=== PATIENT | male | born 1965 | race African-American/Black ===

== ENCOUNTER 2017-12-03 07:43 | Emergency (ER) | payer MEDICAID ==
[~2017-12-03] VITALS: Ht 182.9 cm; Wt 108.9 kg
--- NOTE | 2017-12-03 07:50 | NUR ---
IV ACCESS STARTED. BLOOD DRAWN FOR LABS.
[2017-12-03 08:13] LABS: BASOPHILS % (AUTO) 0.1 % (0.0-2.0); EOSINOPHILS % (AUTO) 1.3 % (0.0-6.0); HEMATOCRIT 44 % (39-51); HEMOGLOBIN 14.9 g/dL (13.5-17.5); LYMPHOCYTES # (AUTO) 2.1 /CMM (0.8-4.8); LYMPHOCYTES % (AUTO) 15.4 % (20.0-44.0); MEAN CORPUSCULAR HGB CONC 34 g/dl (31.0-36.0); MEAN CORPUSCULAR VOLUME 96 fL (80-96); MONOCYTES # (AUTO) 0.5 /CMM (0.1-1.30); MONOCYTES % (AUTO) 3.9 % (2.0-12.0); NEUTROPHILS # (AUTO) 10.7 /CMM (1.8-8.9); NEUTROPHILS % (AUTO) 79.3 % (43.0-81.0); PLATELET COUNT (AUTO) 250 /CMM (150-450); RDW COEFFICIENT OF VARIATION 12.6 (11.5-15.0); RED BLOOD CELL COUNT(AUTO) 4.61 MIL/uL (4.5-6.0); WHITE BLOOD COUNT (AUTO) 13.5 K/uL (4.3-11.0)
--- NOTE | 2017-12-03 08:21 | NUR ---
[facility] AT BS.
[2017-12-03 08:26] LABS: CALCIUM, SERUM 9.4 mg/dL (8.5-10.1); CREATININE 1.2 mg/dL (0.6-1.3); POTASSIUM 4.7 mmol/L (3.5-5.1)
[2017-12-03] MEDS ORDERED: FUROSEMIDE 40 MG/4 ML VIAL IV ONE (08:30)
[2017-12-03] MEDS ORDERED: NITROGLYCERIN PACKET 1 GM PACKET TD ONE (08:30)
[2017-12-03] MEDS ORDERED: NITROGLYCERIN PACKET 1 GM PACKET ONE (08:31)
[2017-12-03] MEDS ORDERED: FUROSEMIDE 20 MG/2 ML VIAL ONE (08:31)
[2017-12-03 08:32] LABS: TROPONIN I 0.066 ng/mL (0.00-0.056)
[2017-12-03] MEDS ORDERED: ASPI-1169 PO (08:33)
[2017-12-03] MEDS ORDERED: AMLO5TAB7 PO (08:33)
[2017-12-03 08:40] LABS: BILIRUBIN,DIRECT 0.1 mg/dL (0.0-0.2); BILIRUBIN,TOTAL 0.6 mg/dL (0.2-1.0)
[2017-12-03] MEDS ORDERED: ASPIRIN 325 MG TABLET PO ONE (09:00)
--- NOTE | 2017-12-03 09:00 | NUR ---
PAGED DR MERRITT ([employer])
[2017-12-03] MEDS ORDERED: ASPIRIN 325 MG TABLET ONE (09:07)
--- NOTE | 2017-12-03 10:00 | NUR ---
Patient does not wish to proceed with medical care recommended by . Patient given information related to possible complications, up to and including , which could occur as a result of leaving the hospital at this time. Patient verbalizes understanding of risks involved due to leaving against medical advice. Patient has signed AMA form.
[2017-12-03 10:17] VITALS: BP 154/95
== END 2017-12-03 10:17 | disposition left against medical advice (07) ==
LOC: ER 07:44
DX: I11.0 Hypertensive heart disease with heart failure (principal); I50.9 Heart failure, unspecified; E11.9 Type 2 diabetes mellitus without complications; N52.9 Male erectile dysfunction, unspecified; R79.89 Other specified abnormal findings of blood chemistry; Z79.82 Long term (current) use of aspirin
CPT/HCPCS: 36415; 71045-TC; 80048-TC; 80076-TC; 83880; 84484-TC; 85025-TC; A4606; J1940; Z7610